=== PATIENT | male | born 1960 | race Caucasian/White ===

== ENCOUNTER 2016-09-10 05:58 | Emergency (ER) | payer SELFPAY ==
[~2016-09-10] VITALS: Ht 175.3 cm; Wt 79.4 kg
[2016-09-10 06:03] VITALS: BP 135/84; PULSE 88; RESP 16; TEMP 97.1; O2SAT 97
--- NOTE | 2016-09-10 06:03 | NUR ---
Patient to ER bed 5 to gown for evaluation. Side rails up. Report given to STEPHANIE VELA.
[2016-09-10] MEDS ORDERED: NACL 0.9% 1,000 ML IV ONE (06:15)
--- NOTE | 2016-09-10 06:15 | NUR ---
Pt BIB ambulance, accompanied by law enforcement, pt c/o dizziness + stumbling, stated he drank alcohol prior to ED arrival. A&Ox4, denies SOB or chestpain, denies N/V/D. Skin intact. WIll continue to monitor
--- NOTE | 2016-09-10 06:16 | NUR ---
MD Pat at bedside examining pt
[2016-09-10 06:47] LABS: BASOPHILS # (AUTO) 0.3 K/uL (0.0-0.2); BASOPHILS % (AUTO) 3.8 % (0.0-2.0); EOSINOPHILS # (AUTO) 0.4 K/uL (0.0-0.4); EOSINOPHILS % (AUTO) 4.3 % (0.0-4.0); HEMATOCRIT 48.7 % (36-54); HEMOGLOBIN 16.3 g/dL (14.0-18.0); LYMPHOCYTES # (AUTO) 1.5 K/uL (1.0-5.5); LYMPHOCYTES % (AUTO) 17.8 % (20.5-51.5); MEAN CORPUSCULAR HEMOGLOBIN 32 pg (27-31); MEAN CORPUSCULAR HGB CONC 34 % (32-36); MEAN CORPUSCULAR VOLUME 95 fL (79.0-98.0); MONOCYTES # (AUTO) 0.6 K/uL (0.0-1.0); MONOCYTES % (AUTO) 6.6 % (1.7-9.3); NEUTROPHILS # (AUTO) 5.6 K/uL (1.8-7.7); NEUTROPHILS % (AUTO) 67.5 % (40.0-70.0); PLATELET COUNT (AUTO) 144 K/uL (130-430); RED CELL DISTRIBUTION WIDTH 11.6 % (9.0-15.0); WHITE BLOOD COUNT (AUTO) 8.4 K/uL (4.8-10.8)
[2016-09-10 06:52] LABS: CALCIUM 9.4 mg/dL (8.4-11.0); CREATININE 1.05 mg/dL (0.55-1.30); POTASSIUM 4.1 mmol/L (3.5-5.1)
[2016-09-10 06:56] LABS: INR 0.9 (0.80-1.20); PROTHROMBIN TIME 9.6 SECS (9.5-12.5)
[2016-09-10 07:06] LABS: ALBUMIN 3.7 g/dL (3.4-4.8); TOTAL BILIRUBIN 0.5 mg/dL (0.0-1.0); TOTAL PROTEIN, SERUM 7.4 g/dL (6.4-8.3)
--- NOTE | 2016-09-10 07:15 | NUR ---
Care endorsed to Jaziel VELA, report given
[2016-09-10] MEDS ORDERED: INSULIN REGULAR, HUMAN 10 UNITS/0.1 ML INJ IVP ONE (07:30)
--- NOTE | 2016-09-10 07:32 | NUR ---
Pt medicated.Pt tolerated well. Continuuing to monitor.
--- NOTE | 2016-09-10 07:45 | NUR ---
ordered BS rechecked [id number].
--- NOTE | 2016-09-10 08:14 | NUR ---
pt ambulated to restyroom steady gait w/o assist.
[2016-09-10 08:30] VITALS: BP 130/80; PULSE 88; RESP 16; TEMP 97.1; O2SAT 97
--- NOTE | 2016-09-10 08:30 | NUR ---
Patient given written and verbal discharge instructions and verbalizes understanding. ER MD discussed with patient the results and treatment provided. Patient in stable condition. ID arm band removed. IV catheter removed intact and dressing applied, no active bleeding. Patient educated on pain management and to follow up with PMD. Pain Scale 0. Opportunity for questions provided and answered.
== END 2016-09-10 08:30 ==
LOC: SED 05:58
DX: Z02.89 Encounter for other administrative examinations (principal); E11.65 Type 2 diabetes mellitus with hyperglycemia; R55 Syncope and collapse; R03.0 Elevated blood-pressure reading, without diagnosis of hypertension
CPT/HCPCS: 36415; 80053; 82962; 85025; 85610; 85730; 93005; 96361; 96374; 99285; G0482; J7030; J1815